=== PATIENT | female | born 1995 | race Caucasian/White ===

== ENCOUNTER → 2020-10-08 | Outpatient (CLI) | payer OTHER ==
[~2020-10-08] MED LIST: ALDACTONE25 MG PO; BASAGLAR K100 UNIT/1 SC; BENTYL 20MG TAB20 MG PO; CELEBREX 200MG200 MG PO; COLACE 100MG C100 MG PO; COLACE100 MG PO; DIGOX250 MCG PO; IBUPROFEN600 MG PO; IBUPROFEN800 MG PO; KLONOPIN TAB 00.5 MG PO; LANTUS100 UNIT/1 SQ; PERCOCET 5/325 T1 EA PO; PROTONIX40 MG PO; PROZAC20 MG PO; TOPAMAX100 MG PO; XANAX1 MG PO; ZOFRAN 4 MG TAB4 MG PO; ZOFRAN4 MG PO
== END ==
LOC: EXRD 10-06 09:45
DX: R10.11 Right upper quadrant pain (principal); K76.0 Fatty (change of) liver, not elsewhere classified
CPT/HCPCS: 76705

== ENCOUNTER 2020-10-21 21:49 | Emergency (ER) | payer OTHER ==
[~2020-10-21 21:49] MED LIST changes: -COLACE 100MG C100 MG PO; -IBUPROFEN800 MG PO; -PERCOCET 5/325 T1 EA PO; -ZOFRAN 4 MG TAB4 MG PO
[2020-10-22 00:19] LABS: HEMOGLOBIN 13.8 gm/dl (12.3-15.3); RED BLOOD COUNT 5.32 M/UL (4.00-5.10); WHITE BLOOD COUNT 12.7 K/UL (4.5-11.0)
[2020-10-22 00:30] LABS: BUN/CREATININE RATIO 24 (0-10)
[2020-10-22] MEDS ORDERED: ZOFRAN 4 MG TAB4 MG PO (02:33)
[2020-10-22] MEDS ORDERED: IBUPROFEN800 MG PO (02:33)
[2020-10-22] MEDS ORDERED: BENTYL 20MG TAB20 MG PO (02:33)
[2020-10-22] MEDS ORDERED: COLACE 100MG C100 MG PO (02:33)
== END 2020-10-22 02:37 | disposition home or self-care (01) ==
LOC: ER1 21:49
PROVIDERS: Emergency Medicine
DX: K80.20 Calculus of gallbladder without cholecystitis without obstruction (principal); Z90.49 Acquired absence of other specified parts of digestive tract; Z88.1 Allergy status to other antibiotic agents; Z88.0 Allergy status to penicillin
CPT/HCPCS: 36415; 80053; 83605; 83690; 84703; 85025; 96374; 96375; 96376; 99284; J2270; J2405; Q9967

== ENCOUNTER 2020-11-04 01:32 | Emergency (ER) | payer OTHER ==
[~2020-11-04 01:32] MED LIST changes: +COLACE 100MG C100 MG PO; +IBUPROFEN800 MG PO; +ZOFRAN 4 MG TAB4 MG PO
[2020-11-04 02:48] LABS: HEMOGLOBIN 13.6 gm/dl (12.3-15.3); RED BLOOD COUNT 5.32 M/UL (4.00-5.10); WHITE BLOOD COUNT 14.8 K/UL (4.5-11.0)
[2020-11-04 03:00] LABS: BUN/CREATININE RATIO 30 (0-10)
[2020-11-04] MEDS ORDERED: PERCOCET 5/325 T1 EA PO (04:04)
== END 2020-11-04 04:24 | disposition home or self-care (01) ==
LOC: ER1 01:32
PROVIDERS: Family Medicine
DX: K80.20 Calculus of gallbladder without cholecystitis without obstruction (principal); F41.9 Anxiety disorder, unspecified; E66.01 Morbid (severe) obesity due to excess calories; Z88.1 Allergy status to other antibiotic agents; Z90.89 Acquired absence of other organs; F17.210 Nicotine dependence, cigarettes, uncomplicated
CPT/HCPCS: 36415; 80053; 83690; 84703; 85025; 99284

== ENCOUNTER 2021-07-10 19:43 | Emergency (ER) | payer OTHER ==
[~2021-07-10 19:43] MED LIST changes: +PERCOCET 5/325 T1 EA PO
[2021-07-10 21:13] LABS: HEMOGLOBIN 13.5 gm/dl (12.3-15.3); RED BLOOD COUNT 5.22 M/UL (4.00-5.10); WHITE BLOOD COUNT 13.3 K/UL (4.5-11.0)
[2021-07-10 21:37] LABS: BUN/CREATININE RATIO 26 (0-10)
== END 2021-07-11 00:25 | disposition home or self-care (01) ==
LOC: ER1 19:43
PROVIDERS: Emergency Medicine
DX: O20.9 Hemorrhage in early pregnancy, unspecified (principal); Z3A.01 Less than 8 weeks gestation of pregnancy; Z90.89 Acquired absence of other organs; Z88.0 Allergy status to penicillin; Z88.1 Allergy status to other antibiotic agents; Z88.8 Allergy status to other drugs, medicaments and biological substances
CPT/HCPCS: 76817; 80053; 81001; 84702; 85025; 86900; 86901; 87086; 99284

== ENCOUNTER 2021-09-07 18:48 | Emergency (ER) | payer OTHER ==
[2021-09-08] MEDS ORDERED: CYCLOBENZAPRINE10 MG PO (00:36)
[2021-09-08] MEDS ORDERED: MOBIC15 MG PO (00:36)
== END 2021-09-08 00:42 | disposition home or self-care (01) ==
LOC: ER1 18:48
DX: S06.9X9A Unspecified intracranial injury with loss of consciousness of unspecified duration, initial encounter (principal); S16.1XXA Strain of muscle, fascia and tendon at neck level, initial encounter; S29.012A Strain of muscle and tendon of back wall of thorax, initial encounter; S39.012A Strain of muscle, fascia and tendon of lower back, initial encounter; S80.01XA Contusion of right knee, initial encounter; F17.200 Nicotine dependence, unspecified, uncomplicated; Z88.0 Allergy status to penicillin; Z88.1 Allergy status to other antibiotic agents; V49.50XA Passenger injured in collision with unspecified motor vehicles in traffic accident, initial encounter; Y92.410 Unspecified street and highway as the place of occurrence of the external cause
CPT/HCPCS: 70450; 72072; 72100; 72125; 73562; 99284